=== PATIENT | male | born 1970 | race Two or more races ===

== ENCOUNTER 2018-11-05 11:38 | Emergency (ER) | payer SELFPAY ==
[2018-11-05 11:40] VITALS: BMI 22.4
[2018-11-05 11:41] VITALS: BP 130/91; PULSE 70; RESP 16; TEMP 98.4; O2SAT 98
== END 2018-11-05 15:40 | disposition left against medical advice (07) ==
LOC: H.ER 11:38
DX: Z02.89 Encounter for other administrative examinations (principal)